=== PATIENT | female | born 1995 | race Native Hawaiian/Other Pacific Islander ===

== ENCOUNTER 2020-05-07 19:50 | Emergency (ER) | payer OTHER ==
[~2020-05-07] VITALS: Ht 160 cm; Wt 65.8 kg
[2020-05-07 21:18] LABS: PLATELET COUNT 201 K/uL (152-353)
[2020-05-07 21:31] LABS: POTASSIUM 3.6 mmol/L (3.6-5.2)
[2020-05-07 23:15] VITALS: BP 102/66; TEMP 98.6
== END 2020-05-07 23:15 | disposition home or self-care (01) ==
LOC: ED 19:57
DX: N39.0 Urinary tract infection, site not specified (principal); R20.2 Paresthesia of skin; F41.8 Other specified anxiety disorders; Z79.2 Long term (current) use of antibiotics
CPT/HCPCS: 36415; 80053; 81000; 85027; 99283